=== PATIENT | male | born 1970 | race Caucasian/White ===

== ENCOUNTER → 2020-10-17 | Outpatient (CLI) | payer OTHER ==
[2020-10-17 12:59] LABS: HEMOGLOBIN 14.1 gm/dl (14.0-17.5); RED BLOOD COUNT 5.04 M/UL (4.20-5.50)
[2020-10-17 13:34] LABS: BUN/CREATININE RATIO 11 (0-10)
[2020-10-18 08:14] LABS: HCV AB <0.1 (0.0-0.9)
[2020-10-18 11:15] LABS: HBSAG SCREEN Negative (Negative); HEP B CORE AB, TOT Negative (Negative)
[2020-10-20 20:09] LABS: QUANTIFERON MITOGEN VALUE >10.00 IU/mL (.); QUANTIFERON NIL VALUE 0.06 IU/mL (.); QUANTIFERON TB1 AG VALUE 0.05 IU/mL (.); QUANTIFERON TB2 AG VALUE 0.05 IU/mL (.); QUANTIFERON-TB GOLD PLUS Negative (Negative)
== END ==
LOC: RAD 12:08
PROVIDERS: Internal Medicine
DX: Z11.59 Encounter for screening for other viral diseases (principal); L40.50 Arthropathic psoriasis, unspecified; Z79.899 Other long term (current) drug therapy; M46.1 Sacroiliitis, not elsewhere classified
CPT/HCPCS: 36415; 72202; 80053; 85025; 85652; 86140; 86704; 86803; 87340

== ENCOUNTER → 2021-05-27 | Outpatient (CLI) | payer OTHER | LOC: SLEEP 13:40 | DX: G47.33 Obstructive sleep apnea (adult) (pediatric) (principal); G47.61 Periodic limb movement disorder | CPT/HCPCS: 95810 ==

== ENCOUNTER → 2021-06-17 | Outpatient (CLI) | payer OTHER | LOC: HEART 5 15:26 | DX: I10 Essential (primary) hypertension (principal); I34.0 Nonrheumatic mitral (valve) insufficiency ==

== ENCOUNTER → 2021-10-18 | Outpatient (CLI) | payer OTHER | LOC: KOH-I 10:09 | DX: R42 Dizziness and giddiness (principal) | CPT/HCPCS: 70551 ==